=== PATIENT | female | born 2000 | race Caucasian/White ===

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

== ENCOUNTER 2019-03-02 21:11 | Emergency (ER) | payer OTHER ==
[~2019-03-02] VITALS: Ht 170.2 cm; Wt 81.8 kg
[2019-03-02 21:11] VITALS: BP 143/85
[2019-03-02] MEDS ORDERED: ALBU8.5H IH (21:17)
[2019-03-02] MEDS ORDERED: SING10TA32 PO (21:17)
[2019-03-02] MEDS ORDERED: CETI10CH PO (21:17)
[2019-03-02] MEDS ORDERED: FLUT22IN INH (21:17)
--- NOTE | 2019-03-03 06:07 | REP ---
Clinical: Trauma. Technique: AP, lateral, bilateral oblique views of the left ankle. Findings: Swelling consist with inversion injury. No acute fracture or dislocation. Impression: Swelling. No acute fracture. Electronically Signed by Bib Corral MD 03/03/2019 05:58 A
== END 2019-03-02 22:14 | disposition home or self-care (01) ==
LOC: M ED 21:11
DX: S93.402A Sprain of unspecified ligament of left ankle, initial encounter (principal); X50.0XXA Overexertion from strenuous movement or load, initial encounter; Y92.018 Other place in single-family (private) house as the place of occurrence of the external cause; J45.909 Unspecified asthma, uncomplicated; D68.2 Hereditary deficiency of other clotting factors; Z79.51 Long term (current) use of inhaled steroids; Z79.899 Other long term (current) drug therapy